=== PATIENT | female | born 1990 | race American Indian/Alaskan Native ===

== ENCOUNTER 2020-09-30 15:26 | Emergency (ER) | payer OTHER ==
[2020-09-30 17:31] VITALS: BP 148/74
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
[2020-09-30] MEDS ORDERED: traMADol 50 MG TAB PO ONE (21:00)
== END 2020-09-30 21:15 | disposition home or self-care (01) ==
LOC: ED 15:26
DX: S29.012A Strain of muscle and tendon of back wall of thorax, initial encounter (principal); Z79.899 Other long term (current) drug therapy; V89.2XXA Person injured in unspecified motor-vehicle accident, traffic, initial encounter; Y93.89 Activity, other specified; Y92.488 Other paved roadways as the place of occurrence of the external cause; Y99.8 Other external cause status
CPT/HCPCS: 99283